=== PATIENT | male | born 1955 | race Caucasian/White ===

== ENCOUNTER 2016-03-09 22:51 | Emergency (ER) | payer OTHER ==
[~2016-03-09] VITALS: Ht 180.3 cm; Wt 192.1 kg
[2016-03-10] MEDS ORDERED: CLARITIN,ALAVAR10 MG PO (00:56)
[2016-03-10 01:05] VITALS: BP 175/94
== END 2016-03-10 01:06 | disposition home or self-care (01) ==
LOC: RME 22:51 → EME 22:51 → RME 03-10 01:06
DX: R04.0 Epistaxis (principal); J31.0 Chronic rhinitis; I10 Essential (primary) hypertension; Z87.891 Personal history of nicotine dependence; E66.01 Morbid (severe) obesity due to excess calories; Z68.43 Body mass index [BMI] 50.0-59.9, adult
CPT/HCPCS: 99281; 99284